=== PATIENT | female | born 1980 ===

== ENCOUNTER 2017-10-29 16:25 | Emergency (ER) | payer OTHER ==
[2017-10-29 16:40] VITALS: BP 143/64
--- NOTE | 2017-10-29 17:00 | UC ---
Eye Complaint HPI - HPI Summary HPI Summary: states started with stye on left eye 3 days ago, has been using warm compresses to no avail. Denies chills, fever, discharge or blurred vision. - History of Current Complaint Chief Complaint: UCEye Stated Complaint: EYE IRRITATION Time Seen by Provider: 10/29/17 16:38 Hx Obtained From: Patient Hx Last Menstrual Period: "2013 ?: No Onset/Duration: Sudden Onset, Lasting Days Timing: Constant Severity Initially: Mild Severity Currently: Mild Pain Intensity: 3 Location of Injury: Eye Lid (lower) Character: Dull Aggravating Factor(s): Nothing Alleviating Factor(s): Nothing Associated Signs And Symptoms: Positive: Negative Related History: Similar Episode - Risk Factors Penetrating Injury Risk Factor: Negative Globe Rupture Risk Factors: Negative Acute Glaucoma Risk Factors: Negative Optic Artery Occlusion Risk Factors: Negative - Allergies/Home Medications Allergies/Adverse Reactions: Allergies Allergy/AdvReac Type Severity Reaction Status Date / Time azithromycin Allergy Hives Verified 10/29/17 16:37 Home Medications: Home Medications Levonorgestrel (Iud) [Mirena IUD] 20 mcg IU DAILY 10/29/17 [History Confirmed ] PMH/Surg Hx/FS Hx/Imm Hx Previously Healthy: Yes - Surgical History Surgical History: Yes Surgery Procedure, Year, and Place: Cholecystectomy, 2011, [facility] - Family History Known Family History: Positive: Hypertension - Social History Alcohol Use: Occasionally Substance Use Type: None Smoking Status (MU): Never Smoked Tobacco - Immunization History Most Recent Influenza Vaccination: "April or May" 2014 Review of Systems Eyes: Eye Redness All Other Systems Reviewed And Are Negative: Yes Physical Exam Triage Information Reviewed: Yes Appearance: Well-Appearing, No Pain Distress, Obese Vital Signs: Initial Vital Signs Temp 98.5 F 10/29/17 16:33 Pulse 74 10/29/17 16:33 Resp 19 10/29/17 16:33 BP 143/64 10/29/17 16:33 Pulse Ox 98 10/29/17 16:33 Vital Signs Reviewed: Yes Eyes: Positive: Conjunctiva Clear, Other: - erythema andedema confined to mid lower eyelid of left eye ENT: Positive: Hearing grossly normal, Pharynx normal Neck exam: Normal Respiratory Exam: Normal Respiratory: Positive: Lungs clear, Normal breath sounds, No respiratory distress Cardiovascular: Positive: RRR, No Murmur, Pulses Normal, Brisk Capillary Refill Eye Complaint Course/Dx - Course Course Of Treatment: Start antibiotic eye drops for recurrent stye on left lower eyelid. Baby shampoo cleansing/saline cleansing with warm compresses. F/u with PCP to monitor blood pressure - Differential Dx/Diagnosis Provider Diagnoses: hordeolum. Elevated BP without diagnosis of HTN Discharge - Sign-Out/Discharge Documenting (check all that apply): Discharge/Admit/Transfer - Discharge Plan Condition: Stable Disposition: HOME Prescriptions: Neomycin/Polymyxin B/Dexametha [Maxitrol] 1 home OP BID 5 Days #1 home Patient Education Materials: Stye (ED), Polymyxin B/Neomycin/Dexamethasone ( Into the eye) Referrals: Braxton Strong [Primary Care Provider] - - Billing Disposition and Condition Condition: STABLE Disposition: Home
== END 2017-10-29 16:59 | disposition home or self-care (01) ==
LOC: UCCORT 16:25
DX: H00.015 Hordeolum externum left lower eyelid (principal); R03.0 Elevated blood-pressure reading, without diagnosis of hypertension; Z88.1 Allergy status to other antibiotic agents
CPT/HCPCS: 99212; G0463